=== PATIENT | male | born 1955 | race Caucasian/White ===

== ENCOUNTER 2019-03-23 07:56 | Day surgery (SDC) | payer MEDICAID ==
[~2019-03-23] VITALS: Ht 180.3 cm; Wt 95.3 kg
[~2019-03-23 07:56] MED LIST: AMLO5TAB15 PO; ASPI-404 PO; CEPH-37 PO; HYDR-531 PO; INSU1INJ19 SC; PHEN100C70 PO
[2019-03-23] MEDS ORDERED: ceFAZolin 1GM/50ML 50 ML IV ONE (08:35)
[2019-03-23] MEDS ORDERED: MIDAZOLAM HCL 1MG/1ML-2 ML VIAL ONE (11:27)
[2019-03-23] MEDS ORDERED: MEPERIDINE HCL (25 MG/ML) 1ML VIAL ONE (11:27)
[2019-03-23] MEDS ORDERED: fentaNYL CITRATE 100 MCG/2 ML VL ONE (11:27)
[2019-03-23] MEDS ORDERED: DexAMETHasone SOD PHOS 10MG/1ML VIAL INJ ONE (11:33)
[2019-03-23] MEDS ORDERED: IOHEXOL 300 MG/ML 100ML BOTTLE IJ ONE ×2 (11:35→12:09)
[2019-03-23] MEDS ORDERED: IOHEXOL 180 MG/ML 20ML VIAL IJ ONE (11:35)
[2019-03-23] MEDS ORDERED: KETOROLAC TROMETH 30 MG/ML 1ML VIAL IV ONE (13:00)
[2019-03-23] MEDS ORDERED: HYDROmorphone HCL 2 MG/ML VL IV PRN (13:00)
[2019-03-23] MEDS ORDERED: MORPHINE SULFATE 4 MG/ML SYR/VIAL IV PRN (13:00)
[2019-03-23] MEDS ORDERED: LABETALOL HCL 5 MG/ML 4ML SYRINGE IV PRN (13:00)
[2019-03-23] MEDS ORDERED: MIDAZOLAM HCL 1MG/1ML-2 ML VIAL IV PRN (13:00)
[2019-03-23] MEDS ORDERED: ACCU-CHEK COMFORT CURVE STRIP VI ONE (13:00)
[2019-03-23] MEDS ORDERED: ONDANSETRON HCL 4 MG/2 ML VIAL IV PRN (13:00)
[2019-03-23] MEDS ORDERED: ePHEDrine SULFATE 50 MG/ML AMP IV PRN (13:00)
[2019-03-23 13:34] VITALS: BP 149/99
== END 2019-03-23 13:44 | disposition home or self-care (01) ==
LOC: SUR 07:56
PROVIDERS: ATTEND Urology
DX: N21.1 Calculus in urethra (principal); I10 Essential (primary) hypertension; E11.9 Type 2 diabetes mellitus without complications; I25.10 Atherosclerotic heart disease of native coronary artery without angina pectoris; G40.909 Epilepsy, unspecified, not intractable, without status epilepticus; E66.9 Obesity, unspecified; Z87.11 Personal history of peptic ulcer disease; Z68.29 Body mass index [BMI] 29.0-29.9, adult; Z79.4 Long term (current) use of insulin; Z79.82 Long term (current) use of aspirin; Z79.899 Other long term (current) drug therapy; Z98.890 Other specified postprocedural states
CPT/HCPCS: 50590; 82962; J0690; J1100; J2175; J2250; J3010; Q9965; Q9967